=== PATIENT | female | born 1955 | race Caucasian/White ===

== ENCOUNTER 2016-11-08 01:52 | Day surgery (SDC) | payer MEDICARE, MEDICAID ==
[~2016-11-08] VITALS: Ht 151.1 cm; Wt 62.3 kg
[~2016-11-08 01:52] MED LIST: ALBU2.5V4 INHALATION; ALBU8.5H2 IH; AMLO10TA3 PEG; CARI350T PO; CITA10SO PO; CYCL1DRO OP; DESO60GE TOP; DIAZ10TA3 PEG; DIPH1TAB PEG; FENT1PAT11 TOP; FENT1PAT9 TOP; HYDR2TAB27 PEG; KEN1O TOP; KTC2C15 TP; LIPA1CAP5 PO; MORP10SO PO; OMEP1PAC3 PEG; ONDA-53 PEG; PROM25TA14 PO; Potassium Chloride PEG; TERI2.4P SQ; Urea 20% Cream TOPICAL
[2016-11-08] MEDS ORDERED: Ondansetron 2 mg/mL 2 mL Inj ONE (01:53)
[2016-11-08] MEDS ORDERED: Propofol 10 mg/mL 20 mL Inj ONE (01:53)
[2016-11-08] MEDS ORDERED: Lactated Ringer's 1,000 ML IV ONE (05:00)
[2016-11-08 13:12] VITALS: BP 124/68; PULSE 69; RESP 18; O2SAT 94
[2016-11-08] MEDS ORDERED: DIPH25CA6 PO (13:36)
[2016-11-08] MEDS ORDERED: POLY17PO2 PO (13:36)
[2016-11-08] MEDS ORDERED: CHOL100043 PO (13:36)
[2016-11-08] MEDS ORDERED: Lactated Ringer's 1,000 ML IV SCH (13:42)
[2016-11-08] MEDS ORDERED: Lactated Ringer's 500 ML IV PRN (13:42)
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
[2016-11-08] MEDS ORDERED: Labetalol 5 mg/mL 4 mL Inj IV PRN (13:45)
[2016-11-08] MEDS ORDERED: HYDROmorphone 1 mg/mL Inj IVPUSH PRN (13:45)
[2016-11-08] MEDS ORDERED: Atropine 0.4 mg/mL Inj IVPUSH PRN (13:45)
[2016-11-08] MEDS ORDERED: EPHEDrine Sulfate 50 mg/mL Inj IVPUSH PRN (13:45)
[2016-11-08] MEDS ORDERED: Phenylephrine 10,000 mCg/mL Inj IVPUSH PRN (13:45)
[2016-11-08] MEDS ORDERED: fentaNYL-PF 50 mCg/mL 2 mL Inj IVPUSH PRN (13:45)
[2016-11-08] MEDS ORDERED: Dexamethasone 4 mg/mL Inj IVPUSH PRN (13:45)
[2016-11-08] MEDS ORDERED: Ondansetron 2 mg/mL 2 mL Inj IVPUSH PRN (13:45)
[2016-11-08 14:25] VITALS: BP 117/63; PULSE 66; RESP 14; O2SAT 94
--- NOTE | 2016-11-08 14:32 | PCM.ANEP1 ---
Post Anesthesia PACU Phase 1 Assessment Date of Service: Nov 08, 2016 Vital Signs 66 94% 36.5 112/76 16 Vital Signs Date Time Temp Pulse Resp B/P Pulse Ox O2 Delivery O2 Flow Rate FiO2 11/08/16 13:12 37.0 69 18 124/68 94 Room Air Anesthetic Administered: MAC Level of Alertness: Awake, talking CARDONA's with Equal Strength: No Pain: Yes Pain Scale Score: 8 Nausea or Vomiting: No CV Function & Hydration Stable: Yes Airway Device: Oxygen Delivery: Room Air Lungs: Normal Air Movement PACU Phase 2 Assessment Complications: No Follow up Care: N/A Patient Instructions Provided: N/A Zeeshan Villaseñor MD Nov 08, 2016 14:32
[2016-11-08 14:35] VITALS: BP 129/71; PULSE 66; RESP 16; O2SAT 94
[2016-11-08 14:40] VITALS: BP 119/75; PULSE 67; RESP 16; O2SAT 93
[2016-11-08 14:45] VITALS: BP 117/82; PULSE 67; RESP 16; O2SAT 93
--- NOTE | 2016-11-08 18:55 | NUR ---
SHERLYN Patient admitted to [facility] bed 1 at 1300 for J tube replacement. Caregiver at bedside. Patient reports 7/10 pain as her baseline. Procedure complete without problem. Patient refused to stay longer than 20 minutes for recovery. Instructions reviewed with patient and caregiver, written information given and questions answered. Home at 1450 with caregiver.
--- NOTE | 2016-11-09 08:25 | DRSVH ---
PROCEDURE: X-RAY TUBE REPLACE PERC GASTRO-JEJUNUM INDICATIONS: FEEDING TUBE DYSFUNCTION COMPARISON: [facility], CR, XR TUBE REPLACE PERC GAS JEJUN, 04/08/2016, 14:04. [facility], CR, XR TUBE REPLACE PERC GAS JEJUN, 10/08/2016, 9:31. FINDINGS: Jejunal feeding tube was replaced under fluoroscopic guidance in a mature tract. Balloon w as inflated to 5 cc. This was the amount the patient indicated previous balloon have been inflated. 2 0 cc of contrast were injected through the tube. There is flow away from the tube into the small samia l loops which subsequently especially distally. No extravasation of contrast is seen. The attending delano kuhn was personally present in the room during the examination. The external aspect of the tube was attached to the skin using 4 x 4's and tape. IMPRESSION: Replacement of jejunostomy feeding tube without complication with the patient sedated by anesthesia. Dictated by: Cirilo DOWLING Interpreted: Melissa Draper MD on 11/08/2016 at 14:31 Approved by: Melissa Draper M.D. on 11/09/2016 at 8:23
== END 2016-11-08 23:59 | disposition home or self-care (01) ==
LOC: SOUO 01:52
PROVIDERS: ATTEND Specialist
DX: T85.9XXA Unspecified complication of internal prosthetic device, implant and graft, initial encounter (principal); Y73.1 Therapeutic (nonsurgical) and rehabilitative gastroenterology and urology devices associated with adverse incidents; I10 Essential (primary) hypertension; G89.4 Chronic pain syndrome; D64.9 Anemia, unspecified
CPT/HCPCS: 49452; J2405